=== PATIENT | female | born 1980 | race Caucasian/White ===

== ENCOUNTER → 2024-06-17 11:10 | Outpatient (BNVA) | payer MEDICAID, SELFPAY | PROVIDERS: Visit Provider Family Medicine | DX: Z76.89 Persons encountering health services in other specified circumstances (principal); Z00.00 Encounter for general adult medical examination without abnormal findings; Z11.4 Encounter for screening for human immunodeficiency virus [HIV]; Z11.59 Encounter for screening for other viral diseases; Z13.220 Encounter for screening for lipoid disorders; Z13.6 Encounter for screening for cardiovascular disorders; F41.1 Generalized anxiety disorder; F33.2 Major depressive disorder, recurrent severe without psychotic features; E55.9 Vitamin D deficiency, unspecified | CPT/HCPCS: 80053; 80061; 82306; 84443; 85025; 86803; 87806 ==

== ENCOUNTER 2024-06-29 11:37 | Outpatient (CLI) | payer MEDICAID, SELFPAY ==
--- NOTE | 2024-06-29 11:40 | MM_ITS ---
WS: [id number] BILATERAL 3D TOMOSYNTHESIS DIGITAL SCREENING MAMMOGRAPHY WITH CAD CLINICAL INFORMATION: Z12.31 - Encounter for screening mammogram for malignant ... HISTORY: Screening mammogram. No current complaints. COMPARISON: Baseline TECHNIQUE: Bilateral CC and MLO views. FINDINGS: The breasts are composed of heterogeneous fibroglandular density tissue, which can limit the detection of small underlying mass lesions. No suspicious mass, asymmetry, calcifications, or architectural distortion. No evidence of malignancy. Incidental punctate calcifications. MM/MM [facility] tomosynthesis [id number] IMPRESSION: DENSITY: The breasts are heterogeneously dense, which may obscure small masses. BI-RADS: 2 - Benign FOLLOW UP: 1 Year Follow-up Recommend return to annual screening mammography.
== END 2024-06-29 11:38 | disposition home or self-care (01) ==
LOC: MOBLMAM 11:38
PROVIDERS: PCP Family Medicine; Visit Provider Family Medicine
DX: Z12.31 Encounter for screening mammogram for malignant neoplasm of breast (principal); R92.333 Mammographic heterogeneous density, bilateral breasts; R92.1 Mammographic calcification found on diagnostic imaging of breast
CPT/HCPCS: 77063; 77067